=== PATIENT | male | born 1975 | race Caucasian/White ===

== ENCOUNTER 2018-03-11 21:36 | Inpatient (IN) | payer MEDICAID ==
[2018-03-11] MEDS: SODIUM CHLORIDE 0.9% 1L BAG IV* (22:18)
[2018-03-11] MEDS: ACETAMINOPHEN 500 MG TAB PO (22:18)
[2018-03-11 22:19] LABS: ADD MAN DIFF? NO
[2018-03-11 22:22] LABS: WHITE BLOOD COUNT 14.5 10^3/ul (4.8-10.8)
[2018-03-11 22:22] LABS: BASOPHIL # 0.1 10^3/ul (0.0-0.1); BASOPHILS % 0.3 % (0.0-2.0); EOSINOPHILS # 0.1 10^3/ul (0.0-0.5); EOSINOPHILS % 0.5 % (0.0-7.0); HEMATOCRIT 28.9 % (42.0-52.0); HEMOGLOBIN 9.7 g/dl (14.0-18.0); LYMPHOCYTES % 14.1 % (15.0-51.0); MEAN CORPUSCULAR HEMOGLOBIN 27.5 pg (29.0-33.0); MEAN CORPUSCULAR HGB CONC 33.6 g/dl (32.0-37.0); MEAN CORPUSCULAR VOLUME 81.9 fl (82.0-101.0); MEAN PLATELET VOLUME 9.1 fl (7.4-10.4); MONOCYTE # 0.9 10^3/ul (0.3-0.9); MONOCYTES % 6.1 % (0.0-11.0); NEUTROPHIL # 11.4 10^3/ul (1.6-7.5); NEUTROPHILS % 78.4 % (39.0-77.0); PLATELET COUNT 519 10^3/UL (140-415); RED BLOOD COUNT 3.53 10^6/ul (4.70-6.10); RED CELL DISTRIBUTION WIDTH 13.4 % (11.5-14.5)
[2018-03-11 22:29] LABS: ADD UMIC YES; UR ASCORBIC ACID NEGATIVE (NEGATIVE); UR BILIRUBIN (Dip) NEGATIVE (NEGATIVE); UR BLOOD (Dip) 2+ mg/dL (NEGATIVE); UR CLARITY CLEAR (CLEAR); UR COLOR COLORLESS (YELLOW); UR GLUCOSE (Dip) 3+ mg/dL (NEGATIVE); UR KETONES (Dip) NEGATIVE (NEGATIVE); UR LEUKOCYTE ESTERASE (Dip) 3+ Leu/ul (NEGATIVE); UR NITRITE (Dip) NEGATIVE (NEGATIVE); UR RBC 2 /HPF (0-5); UR SPECIFIC GRAVITY (Dip) 1.008 (1.003-1.030); UR TOTAL PROTEIN (Dip) NEGATIVE (NEGATIVE); UR UROBILINOGEN (Dip) NEGATIVE (NEGATIVE); UR WBC 135 /HPF (0-5)
[2018-03-11] MEDS: morphine 4 MG/ML VIAL IV (22:37)
[2018-03-11 22:40] LABS: ALANINE AMINOTRANSFERASE 64 IU/L (13-69); ALBUMIN 3.3 g/dl (3.3-4.9); ALBUMIN/GLOBULIN RATIO 0.78; ALKALINE PHOSPHATASE 248 IU/L (42-121); ANION GAP 13 (8-16); ASPARTATE AMINO TRANSFERASE 36 IU/L (15-46); BILIRUBIN,INDIRECT 0.2 mg/dl (0-1.1); BILIRUBIN,TOTAL 0.2 mg/dl (0.2-1.3); BLOOD UREA NITROGEN 17 mg/dl (7-20); CALCIUM 7.9 mg/dl (8.4-10.2); CARBON DIOXIDE 31 mmol/L (21-31); CHLORIDE 82 mmol/L (97-110); CREATININE 1.09 mg/dl (0.61-1.24); LIPASE 223 U/L (23-300); POTASSIUM 4.6 mmol/L (3.5-5.1); SODIUM 121 mmol/L (135-144); TOTAL PROTEIN 7.5 g/dl (6.1-8.1)
[2018-03-11 22:46] LABS: INR 1.09; PROTIME 14.2 Sec (11.9-14.9); PT RATIO 1.1
[2018-03-11 22:47] LABS: GLUCOSE 415 mg/dl (70-220); PARTIAL THROMBOPLASTIN TIME 33.8 Sec (25.0-35.0)
[2018-03-11] MEDS: ONDANSETRON 4 MG INJ IV (22:56)
[2018-03-11 23:01] LABS: TROPONIN-I < 0.012 ng/ml (0.00-0.12)
[2018-03-12] MEDS: KETOROLAC 30 MG INJ IV (00:33)
[2018-03-12 00:43] LABS: LACTIC ACID 1.1 mmol/L (0.5-2.0)
[2018-03-12] MEDS: SOD CHLORIDE 0.9% 1,000 ML IV ×3 (03:24→23:30)
[2018-03-12] MEDS ORDERED: DEXTROSE 50% 50 ML SYRINGE IV ×2 (03:30)
[2018-03-12] MEDS ORDERED: GLUCAGON 1 MG INJ IM (03:30)
[2018-03-12] MEDS ORDERED: GLUCOSE GEL 15 GRAM TUBE PO ×2 (03:30)
[2018-03-12] MEDS ORDERED: GLUCOSE GEL 15 GRAM TUBE BUCCAL (03:30)
[2018-03-12 03:38] LABS: ADD MAN DIFF? NO
[2018-03-12 03:43] LABS: BASOPHIL # 0.1 10^3/ul (0.0-0.1); BASOPHILS % 0.5 % (0.0-2.0); EOSINOPHILS % 0.3 % (0.0-7.0); HEMATOCRIT 28.2 % (42.0-52.0); HEMOGLOBIN 9.4 g/dl (14.0-18.0); MEAN CORPUSCULAR HEMOGLOBIN 27.6 pg (29.0-33.0); MEAN CORPUSCULAR HGB CONC 33.3 g/dl (32.0-37.0); MEAN CORPUSCULAR VOLUME 82.7 fl (82.0-101.0); MONOCYTE # 0.8 10^3/ul (0.3-0.9); MONOCYTES % 5.9 % (0.0-11.0); NEUTROPHIL # 11.1 10^3/ul (1.6-7.5); NEUTROPHILS % 78.7 % (39.0-77.0); PLATELET COUNT 491 10^3/UL (140-415); RED BLOOD COUNT 3.41 10^6/ul (4.70-6.10); RED CELL DISTRIBUTION WIDTH 13.6 % (11.5-14.5)
[2018-03-12 03:43] LABS: WHITE BLOOD COUNT 14.1 10^3/ul (4.8-10.8)
[2018-03-12] MEDS: INSULIN GLARGINE [LANtus] 3 ML PEN SC ×2 (03:48→20:34)
[2018-03-12] MEDS: INSULIN ASPART [NOVOLOG] 3 ML PEN SC ×8 (03:49→20:39)
[2018-03-12 03:53] LABS: HEMOGLOBIN A1C 12.7 % (0-5.9)
[2018-03-12 03:59] LABS: ALANINE AMINOTRANSFERASE 56 IU/L (13-69); ALBUMIN 2.9 g/dl (3.3-4.9); ALBUMIN/GLOBULIN RATIO 0.76; ALKALINE PHOSPHATASE 191 IU/L (42-121); ANION GAP 12 (8-16); ASPARTATE AMINO TRANSFERASE 28 IU/L (15-46); BILIRUBIN,INDIRECT 0.3 mg/dl (0-1.1); BILIRUBIN,TOTAL 0.3 mg/dl (0.2-1.3); BLOOD UREA NITROGEN 13 mg/dl (7-20); CALCIUM 7.5 mg/dl (8.4-10.2); CARBON DIOXIDE 30 mmol/L (21-31); CHLORIDE 91 mmol/L (97-110); CREATININE 0.97 mg/dl (0.61-1.24); GLUCOSE 307 mg/dl (70-220); MAGNESIUM 1.7 mg/dl (1.7-2.5); PHOSPHORUS 3.4 mg/dl (2.5-4.9); POTASSIUM 4.6 mmol/L (3.5-5.1); SODIUM 128 mmol/L (135-144); TOTAL PROTEIN 6.7 g/dl (6.1-8.1)
[2018-03-12] MEDS: CEFTRIAXONE 1 GM/50 ML (PMX) 50 ML IVPB ×2 (07:55→20:31)
[2018-03-12] MEDS: AZITHROMYCIN 500MG/NS (PMX) 250 ML IVPB (09:13)
[2018-03-12] MEDS ORDERED: VANCOMYCIN IV PER PHARMACY XX (15:30)
[2018-03-12] MEDS: ACETAMINOPHEN 325 MG TAB PO ×2 (17:24→20:31)
[2018-03-12] MEDS: VANCOMYCIN 1.5 GM in SOD CHLORIDE 0.9% 250 ML IVPB (17:25)
[2018-03-13] MEDS: VANCOMYCIN 1 GM 250 ML IVPB ×3 (01:03→17:35)
[2018-03-13] MEDS: SOD CHLORIDE 0.9% 1,000 ML IV ×3 (05:20→17:43)
[2018-03-13 06:25] LABS: ADD MAN DIFF? NO
[2018-03-13 06:29] LABS: BASOPHIL # 0.1 10^3/ul (0.0-0.1); BASOPHILS % 0.4 % (0.0-2.0); EOSINOPHILS # 0.1 10^3/ul (0.0-0.5); HEMATOCRIT 30.2 % (42.0-52.0); HEMOGLOBIN 9.8 g/dl (14.0-18.0); LYMPHOCYTES # 2.1 10^3/ul (0.8-2.9); MEAN CORPUSCULAR HEMOGLOBIN 27.5 pg (29.0-33.0); MEAN CORPUSCULAR HGB CONC 32.5 g/dl (32.0-37.0); MEAN CORPUSCULAR VOLUME 84.6 fl (82.0-101.0); MEAN PLATELET VOLUME 9.4 fl (7.4-10.4); MONOCYTE # 0.7 10^3/ul (0.3-0.9); MONOCYTES % 4.9 % (0.0-11.0); NEUTROPHIL # 11.1 10^3/ul (1.6-7.5); NEUTROPHILS % 78.1 % (39.0-77.0); PLATELET COUNT 532 10^3/UL (140-415); RED BLOOD COUNT 3.57 10^6/ul (4.70-6.10); RED CELL DISTRIBUTION WIDTH 13.8 % (11.5-14.5)
[2018-03-13 06:29] LABS: WHITE BLOOD COUNT 14.2 10^3/ul (4.8-10.8)
[2018-03-13] MEDS: CEFTRIAXONE 1 GM/50 ML (PMX) 50 ML IVPB ×2 (06:44→21:35)
[2018-03-13 07:17] LABS: ANION GAP 9 (8-16); BLOOD UREA NITROGEN 13 mg/dl (7-20); CALCIUM 8.2 mg/dl (8.4-10.2); CARBON DIOXIDE 35 mmol/L (21-31); CHLORIDE 96 mmol/L (97-110); CREATININE 0.99 mg/dl (0.61-1.24); GLUCOSE 118 mg/dl (70-220); POTASSIUM 4.9 mmol/L (3.5-5.1); SODIUM 135 mmol/L (135-144)
[2018-03-13 07:46] LABS: PROSTATE SPECIFIC ANTIGEN 0.7 ng/ml (0.0-4.0)
[2018-03-13] MEDS: INSULIN ASPART [NOVOLOG] 3 ML PEN SC ×7 (08:00→21:00)
[2018-03-13 11:49] LABS: IRON 25 ug/dl (35-150)
[2018-03-13 11:59] LABS: % IRON SATURATION 13 % SAT (22-52); TOTAL IRON BINDING CAPACITY 189 ug/dl (241-421)
[2018-03-13 16:31] LABS: VANCOMYCIN,TROUGH 12.2 ug/ml (10.0-20.0)
[2018-03-13] MEDS: ACETAMINOPHEN 325 MG TAB PO (21:39)
[2018-03-13] MEDS: INSULIN GLARGINE [LANtus] 3 ML PEN SC (21:39)
[2018-03-14] MEDS: VANCOMYCIN 1 GM 250 ML IVPB ×2 (01:50→08:57)
[2018-03-14] MEDS: ACETAMINOPHEN 325 MG TAB PO (03:42)
[2018-03-14] MEDS: SOD CHLORIDE 0.9% 1,000 ML IV ×2 (04:48→15:47)
[2018-03-14 05:35] LABS: ADD MAN DIFF? NO
[2018-03-14 05:45] LABS: WHITE BLOOD COUNT 12.6 10^3/ul (4.8-10.8)
[2018-03-14 05:45] LABS: BASOPHIL # 0.1 10^3/ul (0.0-0.1); BASOPHILS % 0.6 % (0.0-2.0); EOSINOPHILS # 0.2 10^3/ul (0.0-0.5); EOSINOPHILS % 1.4 % (0.0-7.0); HEMATOCRIT 29.9 % (42.0-52.0); HEMOGLOBIN 9.5 g/dl (14.0-18.0); LYMPHOCYTES # 2.3 10^3/ul (0.8-2.9); LYMPHOCYTES % 18.1 % (15.0-51.0); MEAN CORPUSCULAR HEMOGLOBIN 27.3 pg (29.0-33.0); MEAN CORPUSCULAR HGB CONC 31.8 g/dl (32.0-37.0); MEAN CORPUSCULAR VOLUME 85.9 fl (82.0-101.0); MONOCYTE # 0.8 10^3/ul (0.3-0.9); NEUTROPHIL # 9.2 10^3/ul (1.6-7.5); NEUTROPHILS % 73.3 % (39.0-77.0); PLATELET COUNT 552 10^3/UL (140-415); POSITIVE DIFF @See below; RED BLOOD COUNT 3.48 10^6/ul (4.70-6.10); RED CELL DISTRIBUTION WIDTH 13.8 % (11.5-14.5)
[2018-03-14 06:00] LABS: ANION GAP 13 (8-16); BLOOD UREA NITROGEN 15 mg/dl (7-20); CALCIUM 8.1 mg/dl (8.4-10.2); CARBON DIOXIDE 30 mmol/L (21-31); CHLORIDE 98 mmol/L (97-110); CREATININE 1.03 mg/dl (0.61-1.24); GLUCOSE 120 mg/dl (70-220); POTASSIUM 4.7 mmol/L (3.5-5.1); SODIUM 136 mmol/L (135-144)
[2018-03-14] MEDS: CEFTRIAXONE 1 GM/50 ML (PMX) 50 ML IVPB ×2 (06:47→18:32)
[2018-03-14] MEDS: INSULIN ASPART [NOVOLOG] 3 ML PEN SC ×7 (07:46→21:44)
[2018-03-14] MEDS: metFORMIN 500 MG TAB PO (17:31)
[2018-03-14] MEDS: INSULIN GLARGINE [LANtus] 3 ML PEN SC (21:42)
[2018-03-15] MEDS: SOD CHLORIDE 0.9% 1,000 ML IV ×3 (02:00→14:19)
[2018-03-15 06:10] LABS: ADD MAN DIFF? NO
[2018-03-15] MEDS: CEFTRIAXONE 1 GM/50 ML (PMX) 50 ML IVPB ×2 (06:13→18:35)
[2018-03-15 06:18] LABS: WHITE BLOOD COUNT 12.2 10^3/ul (4.8-10.8)
[2018-03-15 06:18] LABS: BASOPHIL # 0.1 10^3/ul (0.0-0.1); BASOPHILS % 0.6 % (0.0-2.0); EOSINOPHILS # 0.2 10^3/ul (0.0-0.5); EOSINOPHILS % 1.5 % (0.0-7.0); HEMATOCRIT 29.7 % (42.0-52.0); HEMOGLOBIN 9.5 g/dl (14.0-18.0); LYMPHOCYTES # 2.8 10^3/ul (0.8-2.9); LYMPHOCYTES % 23.3 % (15.0-51.0); MEAN CORPUSCULAR HEMOGLOBIN 27.1 pg (29.0-33.0); MEAN CORPUSCULAR VOLUME 84.9 fl (82.0-101.0); MEAN PLATELET VOLUME 9.1 fl (7.4-10.4); MONOCYTE # 0.7 10^3/ul (0.3-0.9); MONOCYTES % 5.7 % (0.0-11.0); NEUTROPHIL # 8.3 10^3/ul (1.6-7.5); NEUTROPHILS % 68.3 % (39.0-77.0); PLATELET COUNT 603 10^3/UL (140-415)
[2018-03-15 06:37] LABS: PHOSPHORUS 5.8 mg/dl (2.5-4.9)
[2018-03-15 06:37] LABS: ANION GAP 13 (8-16); BLOOD UREA NITROGEN 15 mg/dl (7-20); CALCIUM 8.6 mg/dl (8.4-10.2); CARBON DIOXIDE 32 mmol/L (21-31); CHLORIDE 98 mmol/L (97-110); CHOL/HDL RATIO 3.9 RATIO; CHOLESTEROL 110 mg/dl (100-200); CREATININE 0.98 mg/dl (0.61-1.24); GLUCOSE 133 mg/dl (70-220); HDL CHOLESTEROL 28 mg/dl (27-67); LDL CHOLESTEROL,CALCULATED 55 mg/dl; MAGNESIUM 1.8 mg/dl (1.7-2.5); POTASSIUM 4.5 mmol/L (3.5-5.1); SODIUM 138 mmol/L (135-144); TRIGLYCERIDES 135 mg/dl (0-149)
[2018-03-15 06:46] LABS: IRON 33 ug/dl (35-150)
[2018-03-15 06:55] LABS: FREE T4 (FREE THYROXINE) 1.43 ng/dl (0.64-1.79)
[2018-03-15 06:56] LABS: % IRON SATURATION 15 % SAT (22-52); TOTAL IRON BINDING CAPACITY 218 ug/dl (241-421)
[2018-03-15] MEDS: INSULIN ASPART [NOVOLOG] 3 ML PEN SC ×7 (07:59→21:05)
[2018-03-15] MEDS: metFORMIN 500 MG TAB PO ×2 (08:18→17:49)
[2018-03-15] MEDS: ENOXAPARIN 40 MG/0.4 ML SYG SC (08:19)
[2018-03-15] MEDS: INSULIN GLARGINE [LANtus] 3 ML PEN SC (21:06)
[2018-03-15] MEDS: ZOLPIDEM 5 MG TAB PO (23:02)
[2018-03-16] MEDS: SOD CHLORIDE 0.9% 1,000 ML IV ×2 (00:08→17:13)
[2018-03-16] MEDS ORDERED: VANCOMYCIN IV PER PHARMACY XX (02:30)
[2018-03-16] MEDS: VANCOMYCIN 1.5 GM in SOD CHLORIDE 0.9% 250 ML IVPB (02:50)
[2018-03-16] MEDS: CEFTRIAXONE 1 GM/50 ML (PMX) 50 ML IVPB ×2 (06:01→18:36)
[2018-03-16 07:23] LABS: ADD MAN DIFF? NO
[2018-03-16 07:33] LABS: BASOPHIL # 0.1 10^3/ul (0.0-0.1); BASOPHILS % 0.7 % (0.0-2.0); EOSINOPHILS # 0.1 10^3/ul (0.0-0.5); EOSINOPHILS % 1.3 % (0.0-7.0); HEMATOCRIT 29.3 % (42.0-52.0); HEMOGLOBIN 9.3 g/dl (14.0-18.0); LYMPHOCYTES # 2.4 10^3/ul (0.8-2.9); LYMPHOCYTES % 22.8 % (15.0-51.0); MEAN CORPUSCULAR HEMOGLOBIN 27.3 pg (29.0-33.0); MEAN CORPUSCULAR HGB CONC 31.7 g/dl (32.0-37.0); MEAN CORPUSCULAR VOLUME 85.9 fl (82.0-101.0); MEAN PLATELET VOLUME 8.9 fl (7.4-10.4); MONOCYTE # 0.6 10^3/ul (0.3-0.9); MONOCYTES % 5.2 % (0.0-11.0); NEUTROPHIL # 7.4 10^3/ul (1.6-7.5); NEUTROPHILS % 69.1 % (39.0-77.0); PLATELET COUNT 624 10^3/UL (140-415); RED BLOOD COUNT 3.41 10^6/ul (4.70-6.10); RED CELL DISTRIBUTION WIDTH 13.8 % (11.5-14.5)
[2018-03-16 07:33] LABS: WHITE BLOOD COUNT 10.7 10^3/ul (4.8-10.8)
[2018-03-16 07:48] LABS: MAGNESIUM 1.8 mg/dl (1.7-2.5)
[2018-03-16 07:48] LABS: PHOSPHORUS 6.4 mg/dl (2.5-4.9)
[2018-03-16 07:55] LABS: ANION GAP 12 (8-16); BLOOD UREA NITROGEN 21 mg/dl (7-20); CALCIUM 8.8 mg/dl (8.4-10.2); CARBON DIOXIDE 32 mmol/L (21-31); CHLORIDE 97 mmol/L (97-110); CREATININE 1.07 mg/dl (0.61-1.24); GLUCOSE 207 mg/dl (70-220); POTASSIUM 4.9 mmol/L (3.5-5.1); SODIUM 136 mmol/L (135-144)
[2018-03-16] MEDS: INSULIN ASPART [NOVOLOG] 3 ML PEN SC ×7 (08:20→21:05)
[2018-03-16] MEDS: metFORMIN 500 MG TAB PO (08:21)
[2018-03-16] MEDS: ENOXAPARIN 40 MG/0.4 ML SYG SC (08:22)
[2018-03-16] MEDS ORDERED: VANCOMYCIN 1 GM 250 ML IVPB (11:00)
[2018-03-16] MEDS: metFORMIN 850 MG TAB PO (17:58)
[2018-03-16] MEDS ORDERED: ZOLPIDEM 5 MG TAB PO (21:00)
[2018-03-16] MEDS: INSULIN GLARGINE [LANtus] 3 ML PEN SC (21:03)
[2018-03-17] MEDS: ACETAMINOPHEN 325 MG TAB PO (02:11)
[2018-03-17] MEDS: SOD CHLORIDE 0.9% 1,000 ML IV ×4 (05:36→23:30)
[2018-03-17 05:55] LABS: ADD MAN DIFF? NO
[2018-03-17 06:06] LABS: BASOPHIL # 0.1 10^3/ul (0.0-0.1); BASOPHILS % 0.9 % (0.0-2.0); EOSINOPHILS # 0.2 10^3/ul (0.0-0.5); EOSINOPHILS % 1.9 % (0.0-7.0); HEMATOCRIT 27.8 % (42.0-52.0); LYMPHOCYTES # 2.6 10^3/ul (0.8-2.9); LYMPHOCYTES % 26.6 % (15.0-51.0); MEAN CORPUSCULAR HEMOGLOBIN 27.6 pg (29.0-33.0); MEAN CORPUSCULAR HGB CONC 32.4 g/dl (32.0-37.0); MEAN CORPUSCULAR VOLUME 85.3 fl (82.0-101.0); MEAN PLATELET VOLUME 8.9 fl (7.4-10.4); MONOCYTE # 0.7 10^3/ul (0.3-0.9); MONOCYTES % 6.7 % (0.0-11.0); NEUTROPHIL # 6.1 10^3/ul (1.6-7.5); NEUTROPHILS % 62.9 % (39.0-77.0); PLATELET COUNT 610 10^3/UL (140-415); RED BLOOD COUNT 3.26 10^6/ul (4.70-6.10)
[2018-03-17 06:06] LABS: WHITE BLOOD COUNT 9.7 10^3/ul (4.8-10.8)
[2018-03-17] MEDS: CEFTRIAXONE 1 GM/50 ML (PMX) 50 ML IVPB ×2 (06:06→18:06)
[2018-03-17 06:16] LABS: MAGNESIUM 1.8 mg/dl (1.7-2.5)
[2018-03-17 06:16] LABS: PHOSPHORUS 6.6 mg/dl (2.5-4.9)
[2018-03-17 06:34] LABS: ANION GAP 17 (8-16); BLOOD UREA NITROGEN 21 mg/dl (7-20); CALCIUM 8.7 mg/dl (8.4-10.2); CARBON DIOXIDE 27 mmol/L (21-31); CHLORIDE 98 mmol/L (97-110); CREATININE 1.01 mg/dl (0.61-1.24); GLUCOSE 176 mg/dl (70-220); POTASSIUM 4.6 mmol/L (3.5-5.1); SODIUM 137 mmol/L (135-144)
[2018-03-17] MEDS: metFORMIN 850 MG TAB PO ×2 (08:01→17:12)
[2018-03-17] MEDS: ENOXAPARIN 40 MG/0.4 ML SYG SC (08:02)
[2018-03-17] MEDS: INSULIN ASPART [NOVOLOG] 3 ML PEN SC ×7 (08:03→20:47)
[2018-03-17] MEDS: INSULIN GLARGINE [LANtus] 3 ML PEN SC (20:46)
[2018-03-17] MEDS: ZOLPIDEM 5 MG TAB PO (22:23)
[2018-03-18] MEDS: ACETAMINOPHEN 325 MG TAB PO (02:02)
[2018-03-18] MEDS: SOD CHLORIDE 0.9% 1,000 ML IV (04:57)
[2018-03-18] MEDS: CEFTRIAXONE 1 GM/50 ML (PMX) 50 ML IVPB (06:41)
[2018-03-18] MEDS: INSULIN ASPART [NOVOLOG] 3 ML PEN SC ×5 (07:35→12:06)
[2018-03-18] MEDS: glipiZIDE 5 MG TAB PO (08:11)
[2018-03-18] MEDS: metFORMIN 850 MG TAB PO (08:11)
[2018-03-18] MEDS: ENOXAPARIN 40 MG/0.4 ML SYG SC (08:12)
== END 2018-03-18 15:30 | disposition home or self-care (01) | DRG 871 ==
LOC: PP2 03-12 00:57 → E/R 21:36 → PP2 03-12 09:58
DX: A41.01 Sepsis due to Methicillin susceptible Staphylococcus aureus (principal); J18.9 Pneumonia, unspecified organism; E87.1 Hypo-osmolality and hyponatremia; N10 Acute pyelonephritis; N41.0 Acute prostatitis; E11.65 Type 2 diabetes mellitus with hyperglycemia; R91.1 Solitary pulmonary nodule; E78.5 Hyperlipidemia, unspecified; I10 Essential (primary) hypertension; E86.0 Dehydration; N40.0 Benign prostatic hyperplasia without lower urinary tract symptoms; D64.9 Anemia, unspecified; Z87.891 Personal history of nicotine dependence
CPT/HCPCS: 36415; 71045; 74176; 80048; 80053; 80061; 80202; 81001; 82728; 82962; 83036; 83540; 83605; 83690; 83735; 84100; 84153; 84154; 84439; 84443; 84484; 85025; 85610; 85730; 87040; 87086; 88104; 93005; 93306; 96374; 99291-25